=== PATIENT | female | born 1965 | race Caucasian/White ===

== ENCOUNTER 2024-04-25 08:28 | Day surgery (SDC) | payer BC, OTHER ==
[2024-04-25] MEDS ORDERED: Propofol 200 MG/20 ML SDV IV ONE (08:29)
[2024-04-25] MEDS ORDERED: Lidocaine 2% 100 MG/5 ML Syringe IVPUSH ONE (08:29)
[2024-04-25] MEDS ORDERED: Sodium Chloride 0.9% 10 ML Syringe FLUSH PRN (08:30)
[2024-04-25] MEDS: Lactated Ringers 1,000 ML IV SCH (10:05)
[2024-04-25] MEDS: Simethicone Drops 40 MG/0.6 ML 30 ML Bottle ONE (10:25)
== END 2024-04-25 11:10 | disposition home or self-care (01) ==
LOC: FB.SDS 08:28
PROVIDERS: ATTEND Surgery
DX: K21.9 Gastro-esophageal reflux disease without esophagitis (principal); K44.9 Diaphragmatic hernia without obstruction or gangrene; E78.2 Mixed hyperlipidemia; F17.210 Nicotine dependence, cigarettes, uncomplicated; Z79.899 Other long term (current) drug therapy
CPT/HCPCS: 00731; 43239; 88305; 88342; A9270; J2704; J7120